=== PATIENT | male | born 1960 | race Caucasian/White ===

== ENCOUNTER 2024-12-15 14:11 | Inpatient (IN) | payer BC, OTHER, SELFPAY ==
[2024-12-14 17:51] VITALS: BP 159/77
[2024-12-14 18:24] LABS: Hematocrit 39.7 % (39.0-52.0); Hemoglobin 14.1 g/dL (13.0-18.0); Mean Corp Hgb Conc. 35.5 g/dL (33.0-37.0); Mean Corpuscular Volume 91.9 fL (80.0-94.0); Nucleated Red Blood Cells % 0 % (-); Platelet Count 194 10^3/uL (130-400); Red Cell Dist. Width 12.3 % (11.5-14.5)
[2024-12-14 18:37] LABS: ALT (SGPT) 36 U/L (0-50); AST (SGOT) 42 U/L (17-59); Albumin 4.5 g/dl (3.5-5.0); Alkaline Phosphatase 71 U/L (38-126); Blood Urea Nitrogen 15 mg/dl (9-20); Calcium 8.8 mg/dl (8.4-10.2); Carbon Dioxide 23 mmol/L (22-30); Chloride 105 mmol/L (98-107); Glucose 95 mg/dl (70-99); Potassium 4.2 mmol/L (3.5-5.1); Sodium 135 mmol/L (135-145); Total Protein 7.2 g/dl (6.3-8.2); eGFR > 60.00
[2024-12-14 19:58] VITALS: BP 135/70; BMI 31.2
--- NOTE | 2024-12-14 20:00 | PTCARENOTE ---
patient reports having 3 episodes of muscles spasms/weakness of the left arm today. patient states it has subsided, but now the arm feeling restless. patient states he has never had anything like this happen before.
[2024-12-14 20:26] LABS: Magnesium 1.9 mg/dl (1.6-2.3)
--- NOTE | 2024-12-14 20:43 | ED.GENMED ---
History of Present Illness
General
Chief Complaint: Musculo-Skeletal Complaint
Source: patient
Exam Limitations: none
Time Seen by Provider: 12/14/24 19:45
Nursing documentation reviewed up to this point in time: agreed with
History of Present Illness
History of Present Illness:
Patient presents to ED secondary to multiple episodes of left arm involuntary shaking movement, worse at home this afternoon, with each episode lasting approximately 30 to 45 seconds. Afterwards, patient has experienced arm numbness/weakness
sensation lasting another 10 to 15 minutes. Denies headache. Denies neck pain. Denies dizziness. Denies difficulty ambulation. Denies previous history of similar symptoms. Patient is left-hand dominant. Patient states that when his initial
symptoms started, he had wooden panel on his lap and he was painting. Denies recent illness. At the time evaluation ED, patient states that his symptoms have all resolved.
Review of Systems
Review of Systems
Allergies reviewed?: Yes
All Other Systems: ROS reviewed and negative except as documented in HPI and ROS
Constitutional: Reports no symptoms
EENT: Reports no symptoms
Respiratory: Reports no symptoms
Cardiac: Reports no symptoms
ABD/GI: Reports no symptoms
Musculoskeletal: Reports no symptoms
Skin: Reports no symptoms
Neurological: Reports weakness, numbness and other (LUE involuntary movement)
Phy Exam
Physical Exam
Physical Exam:
Physical Exam
General: no apparent distress, not acutely ill. afebrile
Head: nc/at. eomi
Neck: supple. no meningeal signs.
Heart: s1/s2 regular rate and rhythm.
Lungs: no acute respiratory distress. clear bilaterally
Abdomen: normal bowel sounds. not tender
Neuro: alert and oriented x 3. no focal neurological deficits. normal speech. normal gait
Skin: no rash
Psychiatric: well kept. interactive and cooperative
Extremities: no edema. no calf tenderness.
Course
Orders/Labs/Results
Orders:
Orders
12/14/24 17:58
Electrocardiogram (*1) Urgent
Reason for Study: TIA/Stroke
EKG- Treatment ONCE
12/14/24 18:02
CMP [Comprehensive Metabolic Panel] Urgent
Complete Blood Count/With Diff Urgent
Magnesium Urgent
Comment: ADDON
Phosphorus Urgent
Comment: ADDON
TSH Reflex To Free T4 Urgent
Comment: ADDON
Vitamin B1, Whole Blood [S] Urgent
Comment: ADDON
12/14/24 19:51
Add On- LAB Urgent
Tests Added?: magnesium, phosphorus, TSH to reflex free T4, Thiamine level
12/14/24 20:30
CT Head W/o Iv Contrast Urgent
Comment:
Reason For Exam: LUE weakness with involuntary movement
12/14/24 23:09
Admit/Transfer Patient As Directed
Co-Sign Provider:
Level of Care: Observation services
Assign to:: Medical/Surgical
Physician / Group: CHRISTIANNE
Diagnosis: CONCERN FOR VASOGENIC EDEMA VS SEIZURE
Code Status As Directed
Resuscitation Status: Full Code
PRN Pain Medication Management As Directed
May give lesser potent ordered pain med per pt: Yes
preference::
Protocol:: Medication orders for pain may be administered in a
manner that supports deferring to patient preference
when the pt is:
- Requesting an ordered lesser potent pain medication.
Least to most potent pain medications are defined
as: acetaminophen < NSAID < tramadol < opioids
(morphine, oxycodone, hydromorphone).
- Requesting a lesser dose of the same medication IF
ORDERED.
- Requesting a less intrusive route of administration
if both routes are prescribed by the provider (PO <
IV).
12/15/24 01:50
Acetaminophen [Tylenol] 650 mg PO Q4HPRN PRN
Bisacodyl [Dulcolax] 10 mg RECTAL [id number] PRN
Docusate W/Senna [Senokot-S] 1 tablet PO BIDPRN PRN
Polyethylene Glycol Powder [Miralax] 17 grams PO DAILYPRN PRN
12/15/24 01:50
NEUROLOGY CONSULT Routine
Consulting Provider: Kwasi Miranda
Was physician already notified: Yes
MRI Brain [MR Brain Without Contrast] Routine
Comment:
Reason For Exam: LEFT ARM WEAKNESS
Recent pill cam endoscopy?: No
Activity As Directed
Activity Level: As Tolerated
Neurological Checks As Directed
Frequency: Per unit guidelines
Pneumatic Compression Sleeves As Directed
Type: Knee high
Vital Signs As Directed
Frequency: Per unit guidelines
DX Deep Vein Thrombosis Video Routine
12/15/24 Breakfast
Regular
Basic Metabolic Panel IN AM
Complete Blood Count/No Diff IN AM
Hemoglobin A1c [Glycohemoglobin (HgbA1c)] IN AM
Lipid Profile [Cardiovascular Evaluation] IN AM
Abnormal Lab Results
12/14/24
18:02
RBC 4.32 L 10^6/uL
(4.70-6.10)
MCH 32.6 H pg
(27.0-31.0)
Abs Immat Gran (auto) 0.1 H 10^3/uL
(0-0.05)
Immature Gran % 0.6 H %
(0-0.5)
12/14/24 18:02
12/14/24 18:02
Vital Signs
Initial and Last Documented VS:
Initial Vital Signs
Temp Pulse Resp BP Pulse Ox
97.6 F 73 18 159/77 98
12/14/24 17:51 12/14/24 17:51 12/14/24 17:51 12/14/24 17:51 12/14/24 17:51
Last Documented Vital Signs
Temp Pulse Resp BP Pulse Ox
97.7 F 58 20 144/74 99
12/15/24 02:00 12/15/24 02:00 12/15/24 02:00 12/15/24 02:00 12/15/24 02:00
MDM/Problems Addressed
MDM/Problems Addressed:
CT head report reviewed and discussed with patient, as well as on-call neurology (Dr. Miranda). Recommends admission for further evaluation and treatment, including MRI brain with and without contrast. Patient otherwise remains afebrile,
hemodynamically stable, and neurologically intact.
*Pulse Oximetry
SaO2: 100
Oxygen Mode of Delivery: Room air
Patient hypoxic: no
*Critical Care Note
Total Time (30-74mins, 75-104mins- exclusive of procedures): Not Applicable
ED Attending Note
-
Portions of this chart may have been created with voice recognition software.� Occasional wrong word or��sound alike� substitutions may have occurred due to the inherent limitations of voice recognition software.
Discharge Plan
Departure
Patient Disposition: Admit
Date of Disposition: 12/14/24
Time of Disposition: 22:53
Admit to: Med/Surg
Presentation/result/management discussed w/ accepting MD/DO: Hospitalist
Discharge Problem:
Abnormal head CT, Involuntary jerky movements
Interventions
Interventions:
*Risk Screen - Suicide Last Done: 12/15/24 01:13
*General Assessment Last Done: 12/14/24 19:59
*ED- Fall Risk Assessment Last Done: 12/14/24 19:59
*ED COVID-19 Vaccine History Last Done: 12/14/24 19:59
*ED Influenza Vaccine History Last Done: 12/14/24 19:59
*Nursing Disposition Last Done: 12/15/24 01:13
ED-Musculoskeletal Assessment Last Done: 12/14/24 20:00
Discharge Date and Time
Discharge Date/Time: 12/15/24 01:45
--- NOTE | 2024-12-14 22:53 | HPS.HSE ---
Family Physician
-
Family Physician: * NONE
Chief Complaint
-
left UE involuntary movement
History of Present Illness
64 year old with no significant PMH presented to us with left UE involuntary movement. 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 his hand locked up and started shaking which lasted for 45 seconds. it happened three times. when it happened the
third time, his tried to straightened his hand, following that his arm got very weak. he lost his medical service representative, he was not able to hold anything. denied DIETZ, dizzy or syncope. denied blurry vision, numbness, tingling. denied chest pain, sob. denied
abdominal pain,n,v,d. denied dysuria or hematuria.denied any LE weakness.
CT head concern for Small region of subtle diminished attenuation in the right parietal lobe. Questionable subtle sulcal effacement. Otherwise no significant mass effect. Possible considerations include vasogenic edema related to a mass which is not
readily apparent, or cytotoxic edema related to subacute infarct. Recommend follow-up MRI without and with IV contrast.
admitting for further managment.
Medical History
Past Medical History
Past Medical History: Reports Other
Additional Past Medical History:
seasonal allergies
Past Surgical History: Reports None
Social History
Tobacco: Non-smoker
Alcohol: None
Drug: None
Personal:
Living: With Family
Family History
Family History: Not pertinent
Allergies / Home Medications
Allergies reflects when Allergies were last updated in [facility].
Home Medications with original date entered in [facility]
Allergy/Medication List:
Allergies
Allergy/AdvReac Type Severity Reaction Status Date / Time
No Known Allergies Allergy Unverified 12/14/24 17:54
Review of Systems
-
Constitutional: Reports No Symptoms
EENT: Reports No Symptoms
Respiratory: Reports No Symptoms
Cardiac: Reports No Symptoms
Abdomen/GI: Reports No Symptoms
: Reports No Symptoms
Musculoskeletal: Reports No Symptoms
Skin: Reports No Symptoms
Neurological: Reports Other (left arm weakness and involuntary movement)
Endocrine: Reports No Symptoms
Hematologic/Lymphatic: Reports No Symptoms
Psych: Reports No Symptoms
Physical Exam
Vital Signs
Vital Signs
Temp Pulse Resp BP Pulse Ox
97.6 F 68 18 135/70 100
12/14/24 17:51 12/14/24 19:58 12/14/24 19:58 12/14/24 19:58 12/14/24 20:45
Physical Exam
General: Well Developed, Well Nourished and No Apparent Distress
HEENT: NormoCephalic, Moist mucous membranes and Atraumatic
Respiratory: Clear
Cardiac: S1/S2 and Regular Rhythm; No Murmur or Rub
GI: Soft, Non Tender, Non Distended and Normal Bowel Sounds; No Organomegaly
Rectal: Deferred by Provider
Musculoskeletal: No Clubbing, No Cyanosis and No Edema
Skin: No Rash
Neuro: AO x 3 and Nonfocal/grossly intact
Psych: Calm
Laboratory Results
-
12/14/24 18:02
12/14/24 18:02
Laboratory Results
Total Bilirubin 1.1 mg/dl (0.2-1.3) 12/14/24 18:02
AST 42 U/L (17-59) 12/14/24 18:02
ALT 36 U/L (0-50) 12/14/24 18:02
Alkaline Phosphatase 71 U/L (38-126) 12/14/24 18:02
Data Reviewed
-
CT Scan: Report Reviewed by me
Lab Data: Labs Reviewed by me
Impression/Plan
-
# Left upper extremities involuntary movement concern for vasogenic edema vs cytotoxic edema related to subacute infract vs seizure
- Head CT with impression Small region of subtle diminished attenuation in the right parietal lobe. Questionable subtle sulcal effacement. Otherwise no significant mass effect. Possible considerations include vasogenic edema related to a mass which
is not readily apparent, or cytotoxic edema related to subacute infarct. Recommend follow-up MRI without and with IV contrast.
-Obtain MRI of the head
-neurology consulted
#DVT prophylaxis
-scd
#CODE status
-full code
--- NOTE | 2024-12-14 22:58 | W.PN.UPDATE ---
Update Note
Progress Note Update
Patient seen in conjunction with ANDREW. I agree with the findings on history and physical. I concur with the assessment and plan unless stated otherwise.
This is a 64-year-old who presented to the emergency department with involuntary left-sided hand movements. 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 He describes a sudden uncontrolled
contraction of his left upper extremity including the fingers wrist and elbows and associated high amplitude shaking movement. There was no loss of consciousness. He reported that this lasted for about 45 seconds. After resolution the patient
reported his sense of numbness and weakness. He had 2 more episodes prior to coming to the emergency department. On the last episode his spouse was able to pry his hands back as it was a relaxed position. The left reports flaccid weakness in his
left upper extremity. No associated pain. He denies any abnormalities on the contralateral side. He denies any recent trauma, respiratory or GI symptoms. He denies any recent headache, feeling dizzy or lightheaded. He denies any visual changes.
He denies taking any medications, supplements. Reports family history of esophageal cancer in father was a smoker. Colon cancer in mother.
In the emergency department he was afebrile, blood pressure 135/70 with a pulse of 68 and he was satting 100% on room air. ECG shows a normal sinus rhythm without any acute ischemic changes or arrhythmia. CBC was unremarkable. Electrolyte
BUN/creatinine were normal.
CT: Small region of subtle diminished attenuation in the right parietal lobe. Questionable subtle sulcal effacement. Otherwise no significant mass effect. Possible considerations include vasogenic edema related to a mass which is not readily
apparent, or cytotoxic edema related to subacute infarct. Recommend follow-up MRI without and with IV contrast.
Assessment and plan
Left upper extremity uncontrolled contraction which shaking is consistent with either tetany or partial seizure, lesss likely fasciculations from motor neuro d/o. Patient has normal labs, normal calcium and normal magnesium and no explanation for
possible tetany. No recent GI symptoms. Lactic acid was not checked.
- Admit to [facility] for now
- Discussed with neuro, MRI with and without contrast
- If patient has recurrence of symptoms will place on EEG
- Neurochecks
- Neurology consult
- DVT prophylaxis with SCD
[2024-12-14 23:22] VITALS: BP 134/69
[2024-12-15 01:13] VITALS: BP 133/72
[2024-12-15 02:00] VITALS: BP 144/74; BMI 30.4
--- NOTE | 2024-12-15 02:45 | PTCARENOTE ---
Rec'd patient from R. stable vitals. AAOx3. No complaints at this time. Neuro check WNL. POC reviewed with patient.
[2024-12-15 07:00] LABS: Hematocrit 39.6 % (39.0-52.0); Hemoglobin 13.9 g/dL (13.0-18.0); Mean Corp Hgb Conc. 35.1 g/dL (33.0-37.0); Mean Corpuscular Volume 93.2 fL (80.0-94.0); Platelet Count 180 10^3/uL (130-400); Red Cell Dist. Width 12.4 % (11.5-14.5)
[2024-12-15 07:31] LABS: Blood Urea Nitrogen 14 mg/dl (9-20); Calcium 8.5 mg/dl (8.4-10.2); Carbon Dioxide 26 mmol/L (22-30); Chloride 107 mmol/L (98-107); Estimated Creatinine Clearance 108 ml/min; Glucose 116 mg/dl (70-99); HDL Cholesterol 64 mg/dl; LDL Cholesterol, Calculated 97 mg/dl; Potassium 3.9 mmol/L (3.5-5.1); Sodium 137 mmol/L (135-145); Very Low Density Lipoprotein 26 mg/dl (0-30); eGFR > 60.00
[2024-12-15 07:39] VITALS: BP 126/78
--- NOTE | 2024-12-15 08:14 | CON.NEURO ---
Addendum entered and electronically signed by Kwasi Miranda MD 12/15/24 11:15:
Studies reviewed.
I have personally examined the patient. I reviewed and agree with the SALES SUPPORT COORDINATOR's Note.
My addenda:
Awake, alert, interactive. No acute distress.
Speech intact.
Follows 2-step requests w/o difficulty. No tremor.
Extra-ocular movements grossly intact.
Facial movements full and symmetric. Hearing intact to normal conversational volume.
Normal UE movements bilaterally.
Neck: full ROM.
Chest: no dyspnea
Heart: no JVD
Ext: (-) Clubbing, (-) Cyanosis, (-) Edema
IMPRESSIONS/RECOMMENDATIONS:
Abrupt onset of left upper extremity focal onset seizure suggested by rhythmic movements triggered by motion, not reproducible currently
MRI suggestive of a right parietal lesion that enhances surrounded by edema
Differential diagnosis is broad and may include primary HEADLINE WRITER tumor
Based on the focal onset seizure as described previously with 3 episodes, initiate levetiracetam 1000 mg twice a day
Based on the edema surrounding the lesion, initiate dexamethasone 10 mg and then 2 mg twice a day
Check EEG
Patient should be evaluated by neurosurgery within the next 7 days to determine the nature of the lesion and if surgical intervention is appropriate
D/W patient
All questions answered.
Will continue to follow patient.
Original Note:
Neuro Assessment/Plan
Assessment
This is a 64-year-old who presented to the emergency department with involuntary left-sided hand movements.
Head CT: Small region of subtle diminished attenuation in the right parietal lobe. Questionable subtle sulcal effacement. Otherwise no significant mass effect. Possible considerations include vasogenic edema related to a mass which is not readily
apparent, or cytotoxic edema related to subacute infarct. Recommend follow-up MRI without and with IV contrast.
Plan
-obtain brain MRI with and without contrast
-obtain EEG to look for seizure
-seizure precautions
-start aspirin 81 mg daily
-start levetiracetam 1,000 mg BID
-check blood work to look for metabolic abnormalities
All questions encouraged and answered, plan of care discussed with Dr. Miranda and patient
Consultation
Order
Date of Consultation: 12/15/24
Requesting Provider: hospitalist
Reason for Consult: left upper extremity involuntary movements
Subjective/Objective
Subjective Data
Date of Service: December 15, 2024
This is a 64-year-old left-handed male who presented to [facility] on 12/14/2024 with involuntary left-sided hand movements. 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 He describes a sudden uncontrolled
contraction of his left upper extremity including the fingers wrist and elbows and associated high amplitude shaking movement. There was no loss of consciousness. He reported that this lasted for about 45 seconds. After resolution the patient
reported a sense of numbness and weakness. He had 2 more episodes all lasting less than a minute about an hour apart from one another prior to coming to the emergency department. On the last episode his spouse was able to pry his hands back as it
was a relaxed position. There is no associated pain. He denies any abnormalities on the contralateral side. He denies any recent trauma, respiratory or GI symptoms. He denies any recent headache, feeling dizzy or lightheaded. He denies any
visual changes. He denies taking any medications, supplements. Denies tongue/cheek biting or bladder/bowel incontinence during these episodes. Reports family history of esophageal cancer in father was a smoker. Colon cancer in mother. In the
emergency department he was afebrile, blood pressure 135/70 with a pulse of 68 and he was satting 100% on room air. ECG shows a normal sinus rhythm without any acute ischemic changes or arrhythmia. CBC was unremarkable. Electrolyte BUN/creatinine
were normal. Head CT showed small region of subtle diminished attenuation in the right parietal lobe. Questionable subtle sulcal effacement. Otherwise no significant mass effect. Possible considerations include vasogenic edema related to a mass
which is not readily apparent, or cytotoxic edema related to subacute infarct. Recommend follow-up MRI without and with IV contrast.
Objective Data
Vital Signs
Temp Pulse Resp BP Pulse Ox
97.6 F 53 20 126/78 99
12/15/24 07:39 12/15/24 07:39 12/15/24 07:39 12/15/24 07:39 12/15/24 07:39
Lab Results
12/15/24 06:40
12/15/24 06:40
Sodium 137 mmol/L (135-145) 12/15/24 06:40
Potassium 3.9 mmol/L (3.5-5.1) 12/15/24 06:40
BUN 14 mg/dl (9-20) 12/15/24 06:40
Glucose 116 mg/dl (70-99) H 12/15/24 06:40
Calcium 8.5 mg/dl (8.4-10.2) 12/15/24 06:40
Phosphorus 3.2 mg/dl (2.5-4.5) 12/14/24 18:02
LDL Cholesterol, Calc 97 mg/dl 12/15/24 06:40
Patient Allergies
No Known Allergies Allergy (Unverified 12/14/24 17:54)
Physical Exam
-
General: No Apparent Distress, Comfortable and Appears Stated Age
Eyes: No Ptosis and PERRLA
HEENT: Normocephalic, Atraumatic and Anicteric
Neck: Full Range of Motion
Respiratory: No Dyspnea
Cardiac: No JVD
GI: Non-distended
Skin: Unremarkable
Extremities: No Clubbing, No Cyanosis and No Edema
Psych: Unremarkable
Extended Neurological Exam
Mood & Affect: Mood Unremarkable
Attention Span & Concentration: Awake, Alert and Interactive
Memory: Unremarkable
Speech: Quality Unremarkable, Quantity Unremarkable and Rate of Production Unremarkable
Cranial Nerve II: Left Eye: Visual Garcia Intact
Cranial Nerve II: Right Eye: Visual Garcia Intact
Cranial Nerves III, IV, : Extraocular Movement: Extraocular Movement Full in all Directions
Cranial Nerve VII: Facial Symmetry: Normal Facial Symmetry
Cranial Nerve VIII: Hearing: Unremarkable Hearing to Normal Conversational Volume
Cranial Nerves IX, X: Palate Movement: Palate Elevation Symmetric
Cranial Nerve XI: Shoulder Shrug: Unremarkable
Muscle Strength, Overall: Full Throughout
Pronator Drift: No Drift in Upper Extremities and No Drift in Lower Extremities
Coordination: [place]el[place]-usyl-sfigfo Testing Unremarkable and Reaches for Objects without Difficulty
Gait & Station: Up from Seated Without Problem
Data Reviewed
-
CT Head: Report Reviewed and Image Reviewed
MRI Head: Ordered
EEG: Ordered
Medical Test Reports: Report Reviewed
Labs: Report Reviewed
Reviewed with: Physician and Patient
Old Records: Summarized
Medications
-
Active Medications
Generic Name Dose Route Start Last Admin
Trade Name Freq PRN Reason Stop Dose Admin
Acetaminophen 650 mg 12/15/24 01:50
Acetaminophen 325 Mg Tablet PO 01/12/25 01:49
Q4HPRN PRN
mild pain/DIETZ/temp> 100.4F
Bisacodyl 10 mg 12/15/24 01:50
Bisacodyl 10 Mg Rectal Suppository RECTAL 01/12/25 01:49
[id number] PRN
constipation
Polyethylene Glycol 17 grams 12/15/24 01:50
Polyethylene Glycol Powder 17 Grams Packet PO 01/12/25 01:49
DAILYPRN PRN
constipation
Senna/Docusate Sodium 1 tablet 12/15/24 01:50
Docusate W/Senna (Guerda-Colace) Tablet PO 01/12/25 01:49
BIDPRN PRN
constipation
Sodium Chloride 0 flush 12/15/24 03:00
Sodium Chloride 0.9% (Flush) Syringe IV 01/12/25 02:59
PER PROTOCOL ANA LUISA
Past History
Past History
ED Past Medical History: None
[2024-12-15 09:00] LABS: Glycohemoglobin (HgbA1c) 4.7 % (4.0-5.6)
[2024-12-15] MEDS: ASPIR LOW (ENTERIC COATED) 81 MG PO (09:10)
--- NOTE | 2024-12-15 09:11 | CM ---
Addendum entered by Estevan Valero 12/15/24 15:56:
Pt is upgraded to inpatient level of admission.
D/C plan: transfer to [facility]
Original Note:
CM following re: discharge planning.
Reviewed pt's chart, met with pt.
Pt is a 64 year old male, admitted with OBS status and primary dx of Left upper extremities involuntary movement concern for vasogenic edema vs cytotoxic edema related to subacute infract vs seizure. MRI today, neurology consulted. OBS status
reviewed with the pt, pt expressed understanding, declined to sign, OBS letter placed on chart, pt has a copy.
Pt reports he just moved with family to [place] 3 years ago, resides with spouse 2SH, 2 steps to enter, has 2 supportive children. 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
PCP: pt stated he does not have PCP yet, stating he was not needed but know he needs. [facility] clinic information provided and pt started he will call to schedule an appointment. pt stated not every PCP accepts his
insurance that [place] of [place].
Pharmacy: [facility]
D/C plan: home with anticipated no needs. Spouse to transport at discharge.
CM will follow with discharge plan updates as hospitalization progresses
[2024-12-15] MEDS: KEPPRA 1000 MG PO (11:40)
[2024-12-15] MEDS: DECADRON 10 MG PO (11:45)
[2024-12-15] MEDS: PROTONIX 40 MG PO (11:45)
--- NOTE | 2024-12-15 14:05 | W.PN.HOSP.TC ---
Today's Communication/Plan
-
Keppra
Decadron 10
P[address] transfer to [facility] neurosurgery
Assessment / Plan
Assessment / Plan
Impression/plan
Presentation with left upper extremity focal onset seizure.
MRI suggestive of right parietal/frontal lesion with surrounding cerebral edema. In discussion with radiologist most likely primary brain tumor.
EEG.
Initiated on Decadron and Keppra.
Will start sliding scale and PPI for prophylaxis.
Discussed with neurosurgery at [facility]. Patient accepted for transfer. Accepting neurosurgeon Dr. Amelia Duval.
Anticipated Discharge: Within 24 hours
Subjective/Interval History
-
Date of Service: December 15, 2024
Objective Data
-
Labs:
Laboratory Results
12/15/24
06:40
WBC 5.7
Hgb 13.9
Hct 39.6
Plt Count 180
Sodium 137
Potassium 3.9
Chloride 107
Carbon Dioxide 26
BUN 14
Creatinine 0.9
Glucose 116 H
Calcium 8.5
Vital Signs:
Vital Signs
Temp Pulse Resp BP Pulse Ox
97.6 F 53 20 126/78 99
12/15/24 07:39 12/15/24 07:39 12/15/24 07:39 12/15/24 07:39 12/15/24 10:02
Physical Exam
-
General: Well Developed and No Apparent Distress
HEENT: Normocephalic, Atraumatic and Moist Mucous Membranes
Respiratory: Clear to Auscultation
Cardiac: Regular Rhythm and S1/S2; Negative Murmur, Rub or Gallop
GI: Soft, Nontender, Nondistended and Normal Bowel Sounds; Negative Organomegaly
Rectal: Deferred by Provider
Musculoskeletal: No Clubbing, No Cyanosis and No Edema
Skin: Negative Rash
Neuro: Nonfocal/Grossly Intact
--- NOTE | 2024-12-15 15:32 | EEG.RPT ---
Electroencephalogram Report
Recording
Date of EE12/15/24
Type of EEG: Routine
Length of EEG recordin minutes
Done with Video Recording: Yes
Patient Status: Inpatient
Recording Conditions: Awake, Drowsy and Asleep
Hyperventilation Performed: No
Photic Stimulation Performed: Yes
Report
GREATER THAN 1 HOUR EEG INTERPRETATION:
Unremarkable EEG for age
CLINICAL CORRELATION:
A normal EEG does not rule out a diagnosis of epilepsy. If clinical suspicion for seizure persists, a prolonged recording may be warranted.
Clinical correlation is advised.
METHODS:
A 21 channel digitized electroencephalogram (EEG) was performed using the 10/20 international system of electrode placement and one-lead of ECG recorded. The [employer] quantitative EEG system was utilized.
ELECTROENCEPHALOGRAPHER IMPRESSION(S):
Quality of study
Good
Background
There was an unremarkable anterior-posterior voltage gradient of alpha frequency.
With eye opening the background activity changed to a low voltage mixture of frequencies.
There were no significant asymmetries of background activity noted.
Sleep
Drowsiness present
Stage 1 present
Stage 2 present
Photic Stimulation
No activation
ECG
Normal sinus rhythm
[2024-12-15 16:10] VITALS: BP 126/68
[2024-12-15 17:05] LABS: Glucose - Point of Care 148 mg/dl (70-99)
--- NOTE | 2024-12-15 19:14 | PTCARENOTE ---
Patient to be transferred to [facility] via EMS transport at 2030. This RN gave report to Angelica MYERS at facility. R AC IV in place for transport at [place] request; this RN clarified with EMS and nurse database manager, patient okay to transport with
peripheral IV in place. Patient and spouse aware of transport time, copies of Brain MRI, CT scan, and labs given to patient and spouse.
[2024-12-15 19:52] VITALS: BP 131/72
--- NOTE | 2024-12-15 19:58 | PTCARENOTE ---
Transferred patient as directed. Patient doesn't want to take Keppra 0800pm dose.
== END 2024-12-15 20:00 | disposition short-term general hospital (02) | DRG 100 ==
LOC: 2 NORTH 14:11
PROVIDERS: Emergency Medicine; Registered Nurse; ADMITTING PHYSICIAN Internal Medicine; ATTENDING PHYSICIAN Internal Medicine; CONSULT PHYSICIAN Psychiatry & Neurology Neurology; EMERGENCY PHYSICIAN Emergency Medicine
DX: G40.89 Other seizures (principal); G93.6 Cerebral edema; D49.6 Neoplasm of unspecified behavior of brain; R53.1 Weakness; J30.2 Other seasonal allergic rhinitis; Z80.0 Family history of malignant neoplasm of digestive organs
CPT/HCPCS: 70450; 70553; 80048; 80053; 80061; 82962; 83036; 83735; 84100; 84425; 84443; 85025; 85027; 93005; 95813; 99285; A9575

== ENCOUNTER 2025-01-24 13:32 | Emergency (ER) | payer BC, OTHER, SELFPAY ==
[2025-01-24] VITALS (9 sets, daily range): BP systolic 119–139; BP diastolic 74–84; BMI 26.7
[2025-01-24] MEDS: TYLENOL 650 MG PO (14:18)
[2025-01-24 14:26] LABS: Hematocrit 43.5 % (39.0-52.0); Hemoglobin 15.2 g/dL (13.0-18.0); Mean Corp Hgb Conc. 34.9 g/dL (33.0-37.0); Mean Corpuscular Volume 90.2 fL (80.0-94.0); Platelet Count 222 10^3/uL (130-400); Red Cell Dist. Width 12.6 % (11.5-14.5)
[2025-01-24 14:45] LABS: ALT (SGPT) 133 U/L (0-50); AST (SGOT) 39 U/L (17-59); Albumin 4.3 g/dl (3.5-5.0); Alkaline Phosphatase 69 U/L (38-126); Blood Urea Nitrogen 14 mg/dl (9-20); Calcium 9.4 mg/dl (8.4-10.2); Carbon Dioxide 27 mmol/L (22-30); Chloride 98 mmol/L (98-107); Estimated Creatinine Clearance 108 ml/min; Glucose 102 mg/dl (70-99); Magnesium 2.1 mg/dl (1.6-2.3); Potassium 4.0 mmol/L (3.5-5.1); Sodium 137 mmol/L (135-145); Total Protein 7.4 g/dl (6.3-8.2); eGFR > 60.00
--- NOTE | 2025-01-24 15:46 | ED.GENMED ---
History of Present Illness
General
Chief Complaint: Post Operative Problem(s)
Source: patient
Exam Limitations: none
Time Seen by Provider: 01/24/25 14:11
Nursing documentation reviewed up to this point in time: agreed with
History of Present Illness
History of Present Illness:
Patient diagnosed with brain mass in November, status post biopsy at [facility] [place] [facility] [place] last week, currently taking Tylenol and dexamethasone, presents to ED secondary to worsening headache along with left-sided weakness, which was
present when he was discharged from the hospital. Denies fever or chills. Denies vomiting. Denies difficulty with speech. Denies blurred vision.
Past History
Past History
ED Past Medical History: None
Review of Systems
Review of Systems
Allergies reviewed?: Yes
All Other Systems: ROS reviewed and negative except as documented in HPI and ROS
Constitutional: Reports no symptoms
Respiratory: Reports no symptoms
Cardiac: Reports no symptoms
ABD/GI: Reports no symptoms
Musculoskeletal: Reports no symptoms
Skin: Reports no symptoms
Neurological: Reports headache and weakness
Phy Exam
Physical Exam
Physical Exam:
Physical Exam
General: mild painful distress, not acutely ill. afebrile
Head: vince noted over right frontal scalp without swelling/bleeding
Neck: supple. no meningeal signs.
Heart: s1/s2 regular rate and rhythm
Lungs: no acute respiratory distress. clear bilaterally
Abdomen: normal bowel sounds. not tender.
Neuro: alert and oriented x 3. LUE: 1/5 motor strength. LLE: 4/5 motor strength. normal sensation. normal speech
Skin: no rash
Psychiatric: well kept. interactive and cooperative
Extremities: no edema. no calf tenderness.
Course
Orders/Labs/Results
Orders:
Orders
01/24/25 14:11
Acetaminophen [Tylenol] 650 mg PO NOW STA
01/24/25 14:16
CT Head W/o Iv Contrast Urgent
Comment:
Reason For Exam: headache w weakness, s/p brain biopsy
01/24/25 14:21
Complete Blood Count/No Diff Urgent
Comprehensive Metabolic Panel Urgent
Magnesium Urgent
01/24/25 18:54
Dexamethasone [Decadron] 2 mg PO NOW STA
Abnormal Lab Results
01/24/25
14:21
MCH 31.5 H pg
(27.0-31.0)
Glucose 102 H mg/dl
(70-99)
ALT 133 H U/L
(0-50)
01/24/25 14:21
01/24/25 14:21
Vital Signs
Initial and Last Documented VS:
Initial Vital Signs
Temp Pulse Resp BP Pulse Ox
98.0 F 77 19 126/81 98
01/24/25 13:36 01/24/25 13:36 01/24/25 13:36 01/24/25 13:36 01/24/25 13:36
Last Documented Vital Signs
Temp Pulse Resp BP Pulse Ox
98.0 F 65 18 132/83 98
01/24/25 13:36 01/24/25 19:12 01/24/25 19:12 01/24/25 19:12 01/24/25 17:00
MDM/Problems Addressed
MDM/Problems Addressed:
CT head report reviewed. Awaiting callback from patient's neurosx at [facility].
Images transmitted to oncall neurosx () to be reviewed.
Images reviewed by and discussed with primary neurosx () - does not feel that patient requires acute surgical intervention. Recommends discharging patient home with following recommendation - increase decadron to 6mg every 6hrs until
already scheduled appt in [address] [facility]
*Pulse Oximetry
SaO2: 97
Oxygen Mode of Delivery: Room air
Patient hypoxic: no
*Critical Care Note
Total Time (30-74mins, 75-104mins- exclusive of procedures): Not Applicable
ED Attending Note
-
Portions of this chart may have been created with voice recognition software.� Occasional wrong word or��sound alike� substitutions may have occurred due to the inherent limitations of voice recognition software.
Discharge Plan
Departure
Patient Disposition: Home (Routine Discharge)
Date of Disposition: 01/24/25
Time of Disposition: 18:54
Patient with high blood pressure during this ER visit?: Yes
Condition: Fair
Discharge Problem:
Vasogenic edema
Instructions: Brain Swelling
Prescriptions:
New
dexamethasone 2 mg tablet
2 mg PO DAILY Qty: 20 0RF
Referrals:
NONE,* [Family Provider, Internal Medicine]
Activity Restrictions/Additional Instructions:
As discussed, please follow-up with your neurosurgeon on Saturday, as scheduled, for reevaluation. Until then, recommend increasing dexamethasone to 6 mg every 6 hours. Your prescription has been sent electronically to [facility] pharmacy on [address]
in [place].
Interventions
Interventions:
*Risk Screen - Suicide Last Done: 01/24/25 13:41
*General Assessment Last Done: 01/24/25 13:41
*Neglect/Abuse Screening Last Done: 01/24/25 13:41
*ED- Fall Risk Assessment Last Done: 01/24/25 13:59
*ED COVID-19 Vaccine History Last Done: 01/24/25 13:41
*ED Influenza Vaccine History Last Done: 01/24/25 13:41
*Nursing Disposition Last Done: 01/24/25 19:12
ED-Skin Assessment Last Done: 01/24/25 13:59
Discharge Date and Time
Discharge Date/Time: 01/24/25 19:23
Print Language: GREEK
[2025-01-24] MEDS: DECADRON 2 MG PO (19:09)
== END 2025-01-24 19:23 | disposition home or self-care (01) ==
LOC: EMR 13:32
PROVIDERS: EMERGENCY PHYSICIAN Emergency Medicine
DX: G93.6 Cerebral edema (principal); R03.0 Elevated blood-pressure reading, without diagnosis of hypertension
CPT/HCPCS: 99284; 70450; 80053; 83735; 85027